=== PATIENT | female | born 1975 | race African-American/Black ===

== ENCOUNTER 2022-06-01 17:10 | Inpatient (IN) | payer MEDICAID ==
[~2022-06-01] VITALS: Ht 175.3 cm; Wt 77.1 kg
[2022-06-01 18:53] LABS: BASOPHILS % (AUTO) 0.5 % (0.0-2.0); EOSINOPHILS % (AUTO) 0 % (1.0-6.0); HEMATOCRIT 26.5 % (36-46); LYMPHOCYTES # (AUTO) 1.5 K/uL (1.0-4.8); LYMPHOCYTES % (AUTO) 20.8 % (22.0-44.0); MEAN CORPUSCULAR HEMOGLOBIN 22.3 pg (26.0-34.0); MEAN CORPUSCULAR HGB CONC 30.3 G/dL (31.0-37.0); MEAN CORPUSCULAR VOLUME 74 fL (80-100); MONOCYTES # (AUTO) 0.5 K/uL (0.1-1.0); MONOCYTES % (AUTO) 7.8 % (2.0-9.0); NEUTROPHILS # (AUTO) 4.9 K/uL (1.8-7.7); NEUTROPHILS % (AUTO) 70.9 % (40.0-70.0); PLATELET COUNT (AUTO) 288 K/uL (150-450); RED CELL DISTRIBUTION WIDTH 18.6 % (11.5-14.5)
[2022-06-01 19:02] LABS: ANION GAP 8 mmol/L (8-16); CALCIUM, TOTAL 8.8 mg/dL (8.8-10.5); CARBON DIOXIDE 27 mmol/L (22-29); CHLORIDE 109 mmol/L (98-107); CREATININE 0.87 mg/dL (0.60-1.30); GLOMERULAR FILTR. RATE CALC > 60 mL/min (>60); GLUCOSE,RANDOM 76 mg/dL (70-110); POTASSIUM 4.1 mmol/L (3.5-5.1); SODIUM SERUM 144 mmol/L (136-145); UREA NITROGEN, BLOOD 11 mg/dL (7-18)
[2022-06-01 19:09] LABS: ALANINE AMINOTRANSFERASE 15 U/L (12-78); ALBUMIN 3.2 g/dL (3.4-5.0); ALKALINE PHOSPHATASE 69 U/L (46-116); ASPARTATE AMINOTRANSFERASE 21 U/L (15-37); BILIRUBIN,TOTAL 0.2 mg/dL (0.1-1.0); TOTAL PROTEIN, SERUM 6.6 g/dL (6.4-8.2)
[2022-06-01 19:10] LABS: ACETAMINOPHEN < 2 mcg/mL (10-30)
[2022-06-01 19:41] LABS: COVID AG,FIA SOURCE NASAL SWAB
[2022-06-01] MEDS ORDERED: AmLODIPine BESYLATE 5 MG TABLET PO ONE (21:00)
[2022-06-01 21:11] LABS: AMPHET/METH SCREEN,URINE NEGATIVE (NEGATIVE); BARBITURATE SCREEN, URINE NEGATIVE (NEGATIVE); BENZODIAZEPINES SCREEN,URINE POSITIVE (NEGATIVE); CANNABINOID SCREEN,URINE POSITIVE (NEGATIVE); COCAINE SCREEN,URINE NEGATIVE (NEGATIVE); METHADONE SCREEN, URINE NEGATIVE (NEGATIVE); OPIATE SCREEN,URINE NEGATIVE (NEGATIVE); PHENCYCLIDINE SCREEN,URINE NEGATIVE (NEGATIVE)
[2022-06-01] MEDS ORDERED: HALOPERIDOL 5 MG TABLET PO PRN (21:15)
[2022-06-01] MEDS ORDERED: ZOLPIDEM TARTRATE 10 MG TABLET PO PRN (21:15)
[2022-06-01] MEDS ORDERED: LORazepam 2 MG TABLET PO PRN (21:15)
[2022-06-01] MEDS ORDERED: KETOROLAC TROMETHAMINE 30 MG/ML VIAL IM ONE (21:30)
[2022-06-02] MEDS ORDERED: DiphenhydrAMINE HCL 50 MG/ML VIAL IM ONE (00:15)
[2022-06-02] MEDS ORDERED: HALOPERIDOL LACTATE 5 MG/ML VIAL IM ONE (00:15)
[2022-06-02] MEDS ORDERED: AmLODIPine BESYLATE 5 MG TABLET PO ONE (01:15)
[2022-06-02 03:41] VITALS: BP 151/100
[2022-06-02] MEDS ORDERED: INFLUENZA VIRUS VACCINE QVS 2022-23 (6MO+)/PF 60 MCG/0.5 ML SYRINGE IM. ONE (04:45)
[2022-06-02] MEDS ORDERED: GuaiFENesin/D-METHORPHAN [SUGAR-FREE] 200-20MG/10 ML SYRUP UDCUP PO PRN (07:00)
[2022-06-02] MEDS ORDERED: NICOTINE 14 MG/24 HOUR PATCH TD PRN (07:00)
[2022-06-02] MEDS ORDERED: ONDANSETRON HCL 4 MG TABLET PO PRN (07:00)
[2022-06-02] MEDS ORDERED: LOPERAMIDE HCL 2 MG CAPSULE PO PRN (07:00)
[2022-06-02] MEDS ORDERED: PETROLATUM,WHITE 28 GM JELLY TP PRN (07:00)
[2022-06-02] MEDS ORDERED: ALBUTEROL SULFATE HFA 90 MCG/PUFF 8 GM INHALER IH PRN (07:00)
[2022-06-02] MEDS ORDERED: MAGNESIUM HYDROXIDE SUSPENSION 30 ML UDCUP PO PRN (07:00)
[2022-06-02] MEDS ORDERED: ACETAMINOPHEN 325 MG TABLET PO PRN (07:00)
[2022-06-02] MEDS ORDERED: DOCUSATE SODIUM 100 MG CAPSULE PO PRN (07:00)
[2022-06-02] MEDS ORDERED: MAG HYDROX/AL HYDROX/SIMETH ES 30 ML SUSPENSION UDCUP PO PRN (07:00)
[2022-06-02] MEDS ORDERED: CloNIDine HCL 0.1 MG TABLET PO PRN (07:00)
[2022-06-02 08:47] VITALS: BP 136/59
[2022-06-02] MEDS: DULoxetine HCL 60 MG CAPSULE PO SCH ×2 (10:12→16:45)
[2022-06-02] MEDS ORDERED: IBUPROFEN 400 MG TABLET PO PRN (10:45)
[2022-06-02] MEDS: METOPROLOL SUCCINATE 25 MG ER TABLET PO SCH (10:58)
[2022-06-02] MEDS: CYCLOBENZAPRINE HCL 10 MG TABLET PO SCH ×2 (10:58→16:51)
[2022-06-02] MEDS: OxyCODONE HCL 5 MG IR TABLET PO PRN (11:50)
[2022-06-02] MEDS: GABAPENTIN 300 MG CAPSULE PO SCH ×3 (12:41→20:32)
[2022-06-02] MEDS: METHIMAZOLE 5 MG TABLET PO SCH (16:45)
[2022-06-02] MEDS: FERROUS SULFATE 325 MG EC TABLET PO SCH (16:45)
[2022-06-02] MEDS: LISINOPRIL 20 MG TABLET PO SCH (16:46)
[2022-06-02 20:30] VITALS: BP 140/100
[2022-06-02] MEDS ORDERED: CloNIDine HCL 0.1 MG TABLET PO SCH (21:00)
[2022-06-03] MEDS: OxyCODONE HCL 5 MG IR TABLET PO PRN ×2 (02:39→10:55)
[2022-06-03] MEDS ORDERED: GuaiFENesin/D-METHORPHAN [SUGAR-FREE] 200-20MG/10 ML SYRUP UDCUP PO PRN (06:30)
[2022-06-03] MEDS ORDERED: ACETAMINOPHEN 325 MG TABLET PO PRN (06:30)
[2022-06-03] MEDS ORDERED: ONDANSETRON HCL 4 MG TABLET PO PRN (06:30)
[2022-06-03] MEDS ORDERED: MAG HYDROX/AL HYDROX/SIMETH ES 30 ML SUSPENSION UDCUP PO PRN (06:30)
[2022-06-03] MEDS ORDERED: PETROLATUM,WHITE 28 GM JELLY TP PRN (06:30)
[2022-06-03] MEDS ORDERED: NICOTINE 14 MG/24 HOUR PATCH TD PRN (06:30)
[2022-06-03] MEDS ORDERED: CloNIDine HCL 0.1 MG TABLET PO PRN (06:30)
[2022-06-03] MEDS ORDERED: MAGNESIUM HYDROXIDE SUSPENSION 30 ML UDCUP PO PRN (06:30)
[2022-06-03] MEDS ORDERED: IBUPROFEN 400 MG TABLET PO PRN (06:30)
[2022-06-03] MEDS ORDERED: LOPERAMIDE HCL 2 MG CAPSULE PO PRN (06:30)
[2022-06-03] MEDS ORDERED: DOCUSATE SODIUM 100 MG CAPSULE PO PRN (06:30)
[2022-06-03] MEDS ORDERED: ALBUTEROL SULFATE HFA 90 MCG/PUFF 8 GM INHALER IH PRN (06:30)
[2022-06-03] MEDS: FERROUS SULFATE 325 MG EC TABLET PO SCH ×2 (06:33→12:50)
[2022-06-03 08:02] VITALS: BP 148/104
[2022-06-03] MEDS: METHIMAZOLE 5 MG TABLET PO SCH (08:20)
[2022-06-03] MEDS: METOPROLOL SUCCINATE 25 MG ER TABLET PO SCH (08:21)
[2022-06-03] MEDS: DULoxetine HCL 60 MG CAPSULE PO SCH (08:21)
[2022-06-03] MEDS: GABAPENTIN 300 MG CAPSULE PO SCH ×2 (08:21→12:51)
[2022-06-03] MEDS: LISINOPRIL 20 MG TABLET PO SCH (08:21)
[2022-06-03] MEDS: CYCLOBENZAPRINE HCL 10 MG TABLET PO SCH (08:21)
[2022-06-03] MEDS ORDERED: CYCL-448 PO (13:36)
[2022-06-03] MEDS ORDERED: METH-386 PO (13:36)
[2022-06-03] MEDS ORDERED: DULO-113 PO ×2 (13:36→16:39)
[2022-06-03] MEDS ORDERED: FERR325T27 PO (13:36)
[2022-06-03] MEDS ORDERED: GABA-1181 PO ×2 (13:36→16:39)
[2022-06-03] MEDS ORDERED: CLON0.1T2 PO (13:36)
[2022-06-03] MEDS ORDERED: LISI-894 PO (13:37)
[2022-06-03] MEDS ORDERED: METO25XL PO (13:38)
== END 2022-06-03 17:25 | disposition home or self-care (01) | DRG 751 ==
LOC: EMS 17:10 → B3A 06-02 00:37
PROVIDERS: ADMIT Psychiatry & Neurology Child & Adolescent Psychiatry; ATTEND Psychiatry & Neurology Child & Adolescent Psychiatry
DX: F33.2 Major depressive disorder, recurrent severe without psychotic features (principal); R45.851 Suicidal ideations; D64.9 Anemia, unspecified; I10 Essential (primary) hypertension; Z20.822 Contact with and (suspected) exposure to COVID-19; T50.902A Poisoning by unspecified drugs, medicaments and biological substances, intentional self-harm, initial encounter; Y92.89 Other specified places as the place of occurrence of the external cause; Z28.29 Immunization not carried out because of patient decision for other reason
CPT/HCPCS: 80053; 80307; 85025; 93005; 99291; G0480; G0481; J1200; J1630; J1885

== ENCOUNTER 2022-06-17 00:22 | Emergency (ER) | payer MEDICAID ==
[~2022-06-17] VITALS: Ht 165.1 cm; Wt 71.8 kg
[~2022-06-17 00:22] MED LIST: CLON0.1T2 PO; CYCL-448 PO; DULO-113 PO; FERR325T27 PO; GABA-1181 PO; LISI-894 PO; METH-386 PO; METO25XL PO
[2022-06-17] MEDS ORDERED: MORPHINE SULFATE 2 MG/ML SYRINGE IVP ONE (01:15)
[2022-06-17] MEDS ORDERED: ONDANSETRON HCL 4 MG/2 ML VIAL IVP ONE (01:15)
[2022-06-17] MEDS ORDERED: DiphenhydrAMINE HCL 50 MG/ML VIAL IVP ONE (01:15)
[2022-06-17] MEDS ORDERED: METOCLOPRAMIDE HCL 5 MG/ML 2 ML VIAL IVP ONE (01:15)
[2022-06-17] MEDS ORDERED: SODIUM CHLORIDE 0.9% 1,000 ML IV ONE (01:15)
[2022-06-17 01:33] LABS: BASOPHILS % (AUTO) 0.5 % (0.0-2.0); EOSINOPHILS % (AUTO) 0.1 % (1.0-6.0); HEMATOCRIT 29.7 % (36-46); HEMOGLOBIN 9.2 g/dL (12.0-16.0); LYMPHOCYTES # (AUTO) 2.3 K/uL (1.0-4.8); LYMPHOCYTES % (AUTO) 26.6 % (22.0-44.0); MEAN CORPUSCULAR HEMOGLOBIN 22.5 pg (26.0-34.0); MEAN CORPUSCULAR VOLUME 72 fL (80-100); MONOCYTES # (AUTO) 0.7 K/uL (0.1-1.0); MONOCYTES % (AUTO) 7.4 % (2.0-9.0); NEUTROPHILS # (AUTO) 5.7 K/uL (1.8-7.7); NEUTROPHILS % (AUTO) 65.4 % (40.0-70.0); PLATELET COUNT (AUTO) 231 K/uL (150-450); RED CELL DISTRIBUTION WIDTH 19.5 % (11.5-14.5)
[2022-06-17 01:46] LABS: ANION GAP 9 mmol/L (8-16); CALCIUM, TOTAL 8.6 mg/dL (8.8-10.5); CARBON DIOXIDE 25 mmol/L (22-29); CHLORIDE 107 mmol/L (98-107); CREATININE 0.81 mg/dL (0.60-1.30); GLOMERULAR FILTR. RATE CALC > 60 mL/min (>60); GLUCOSE,RANDOM 87 mg/dL (70-110); POTASSIUM 3.6 mmol/L (3.5-5.1); SODIUM SERUM 141 mmol/L (136-145); UREA NITROGEN, BLOOD 6 mg/dL (7-18)
[2022-06-17 02:04] LABS: ALANINE AMINOTRANSFERASE 148 U/L (12-78); ALBUMIN 3.4 g/dL (3.4-5.0); ALKALINE PHOSPHATASE 86 U/L (46-116); ASPARTATE AMINOTRANSFERASE 95 U/L (15-37); BILIRUBIN,TOTAL 0.5 mg/dL (0.1-1.0); HCG,QUANTITATIVE 1 mIU/mL (0-6); LIPASE 138 U/L (73-393); TOTAL PROTEIN, SERUM 6.8 g/dL (6.4-8.2)
[2022-06-17 02:15] VITALS: BP 183/119
== END 2022-06-17 03:45 | disposition home or self-care (01) ==
LOC: EMS 00:26
DX: G43.909 Migraine, unspecified, not intractable, without status migrainosus (principal); M79.671 Pain in right foot; M79.672 Pain in left foot; G89.29 Other chronic pain; I10 Essential (primary) hypertension; F17.200 Nicotine dependence, unspecified, uncomplicated; F12.90 Cannabis use, unspecified, uncomplicated; Z79.899 Other long term (current) drug therapy
CPT/HCPCS: 99285; 96374; 96375; 70450; 96361; 80053; 83690; 84484; 84702; 85025; 36415; 93005; J1200; J2765; J2270; J2405; J7030